=== PATIENT | female | born 1985 | race Caucasian/White ===

== ENCOUNTER → 2024-12-16 13:59 | Outpatient (REF) | payer OTHER, SELFPAY | LOC: WDC 13:59 | PROVIDERS: ATTENDING PHYSICIAN Family Medicine | DX: Z12.31 Encounter for screening mammogram for malignant neoplasm of breast (principal) | CPT/HCPCS: 77063; 77067 ==

== ENCOUNTER → 2025-01-04 08:41 | Outpatient (REF) | payer OTHER, SELFPAY | LOC: WDC 08:41 | PROVIDERS: ATTENDING PHYSICIAN Family Medicine | DX: R92.8 Other abnormal and inconclusive findings on diagnostic imaging of breast (principal) | CPT/HCPCS: 76642 ==